=== PATIENT | female | born 1985 | race Caucasian/White ===

== ENCOUNTER 2020-02-14 05:35 | Inpatient (IN) | payer MEDICAID ==
[2020-02-14 06:02] LABS: HEMOGLOBIN A1C 6.5 % (4.5-6.2)
[2020-02-14] MEDS ORDERED: Scopolamine 1.5 MG Transdermal Patch TOP ONE (06:05)
[2020-02-14] MEDS ORDERED: Acetaminophen 500 MG Tab PO ONE (06:05)
[2020-02-14] MEDS ORDERED: Gabapentin 300 MG Cap PO ONE (06:05)
[2020-02-14] MEDS ORDERED: Dextrose 5%-Lactated Ringers 1,000 ML IV SCH ×2 (06:15→13:15)
[2020-02-14] MEDS ORDERED: MAGNESIUM SULFATE IV ONE (07:45)
[2020-02-14] MEDS ORDERED: Ketamine 500 MG/5 ML MDV IV SCH (07:45)
[2020-02-14] MEDS ORDERED: Magnesium Sulfate 3.4 GM in Sodium Chloride 0.9% 100 ML IV SCH (07:45)
[2020-02-14] MEDS ORDERED: Ampicillin/Sulbactam Na 3 GM in Sodium Chloride 0.9% 100 ML IV ONE (07:45)
[2020-02-14] MEDS ORDERED: SODIUM CHLORIDE 0.9% IV ONE (07:45)
[2020-02-14] MEDS ORDERED: Ketamine 50 MG in Sodium Chloride 0.9% 49.5 ML IV SCH (07:45)
[2020-02-14] MEDS ORDERED: Glycopyrrolate 0.2 MG/ML 5 ML MDV ONE (08:06)
[2020-02-14] MEDS ORDERED: Neostigmine Methylsulfate 1 MG/ML 5 ML Syringe ONE (08:06)
[2020-02-14] MEDS ORDERED: Rocuronium 50 MG/5 ML Vial ONE (08:06)
[2020-02-14] MEDS ORDERED: Ondansetron 4 MG/2 ML SDV ONE (08:06)
[2020-02-14] MEDS ORDERED: Propofol 200 MG/20 ML SDV ONE (08:06)
[2020-02-14] MEDS ORDERED: Dexamethasone 4 MG/ML SDV ONE (08:06)
[2020-02-14] MEDS ORDERED: Succinylcholine 200 MG/10 ML MDV ONE (08:06)
[2020-02-14] MEDS ORDERED: fentaNYL 250 MCG/5 ML SDV ONE ×2 (08:06→08:55)
[2020-02-14] MEDS: cefOXitin 2 GM Vial ONE ×2 (09:00→10:30)
[2020-02-14] MEDS ORDERED: Insulin Lispro 100 Unit/ML 3 ML KwikPen SUBCUT ONE (11:02)
[2020-02-14] MEDS ORDERED: Ondansetron 4 MG/2 ML SDV IVPUSH ONE (11:09)
[2020-02-14] MEDS ORDERED: hydrOXYzine HCL 100 MG/2 ML SDV IM ONE (11:36)
[2020-02-14] MEDS ORDERED: fentaNYL 100 MCG/2 ML SDV IVPUSH ONE (11:38)
[2020-02-14] MEDS ORDERED: Metoclopramide 10 MG/2 ML SDV IVPUSH ONE (11:58)
[2020-02-14] MEDS ORDERED: hydrOXYzine HCL 100 MG/2 ML SDV IM PRN (13:08)
[2020-02-14] MEDS ORDERED: Insulin Lispro 100 Unit/ML 3 ML KwikPen SUBCUT PRN (13:08)
[2020-02-14] MEDS ORDERED: Calcium Gluconate 10% 1 GM/10 ML SDV IVPUSH PRN (13:08)
[2020-02-14] MEDS ORDERED: Ondansetron 4 MG/2 ML SDV IVPUSH PRN (13:08)
[2020-02-14] MEDS ORDERED: diphenhydrAMINE 50 MG/ML SDV IVPUSH PRN (13:08)
[2020-02-14] MEDS ORDERED: Glucagon,Human Recombinant 1 MG Vial IM PRN (13:08)
[2020-02-14] MEDS ORDERED: oxyCODONE 5 MG Tab PO PRN (13:08)
[2020-02-14] MEDS ORDERED: Labetalol 20 MG/4 ML Syringe IVPUSH PRN (13:08)
[2020-02-14] MEDS ORDERED: Cyclobenzaprine 10 MG Tab PO PRN (13:08)
[2020-02-14] MEDS ORDERED: HYDROmorphone 1 MG/ML Syringe IV PRN (13:08)
[2020-02-14] MEDS ORDERED: HYDROmorphone 0.5 MG/0.5 ML Syringe IVPUSH PRN (13:08)
[2020-02-14] MEDS ORDERED: Metoclopramide 10 MG/2 ML SDV IVPUSH PRN (13:08)
[2020-02-14] MEDS ORDERED: Acetaminophen 500 MG Tab PO PRN (13:08)
[2020-02-14] MEDS ORDERED: SCOPOLAMINE PATCH CHECK TOP SCH (13:08)
[2020-02-14] MEDS ORDERED: 50% Dextrose in Water 50 ML Syringe IVPUSH PRN (13:08)
[2020-02-14] MEDS ORDERED: Lactated Ringers 1,000 ML IV SCH (13:15)
[2020-02-14] MEDS ORDERED: Acetaminophen 500 MG Tab PO SCH (14:00)
[2020-02-14] MEDS: Pantoprazole 40 MG Vial IVPUSH SCH (14:18)
[2020-02-14] MEDS: cefOXitin 2 GM in Sodium Chloride 0.9% 50 ML IV SCH ×2 (14:21→19:54)
[2020-02-14] MEDS: Gabapentin 250 MG/5 ML Solution ML 470 ML Bottle PO SCH ×2 (14:22→20:00)
[2020-02-14] MEDS: MVI, Adult with Vitamin K 10 ML, Thiamine 200 MG, Chromium/Copper/Mang/Selen/Zn 1 ML in... IV SCH ×4 (16:24)
[2020-02-14] MEDS: Heparin Sodium 5,000 Units/ML Vial SUBCUT SCH (16:24)
[2020-02-14] MEDS: Acetaminophen/Codeine 300-30 MG Tab PO PRN (19:53)
[2020-02-15] MEDS ORDERED: Iopamidol 612 MG/ML 50 ML SDV PO STA (01:53)
[2020-02-15] MEDS: Acetaminophen/Codeine 300-30 MG Tab PO PRN ×5 (02:26→21:50)
[2020-02-15] MEDS: cefOXitin 2 GM in Sodium Chloride 0.9% 50 ML IV SCH ×3 (02:27→13:25)
[2020-02-15] MEDS: Heparin Sodium 5,000 Units/ML Vial SUBCUT SCH ×2 (04:23→17:06)
[2020-02-15] MEDS ORDERED: Ondansetron 4 MG Tab.DIS PO PRN (07:38)
--- NOTE | 2020-02-15 09:07 | CR ---
[facility] HISTORY: Postbariatric surgery FINDINGS: Patient swallowed water-soluble contrast. Upright views of the abdomen show no evidence of extravasation or obstruction. There is a surgical drain in the left upper quadrant. IMPRESSION: Status post bariatric surgery No extravasation or obstruction seen
[2020-02-15] MEDS: Amphetamine/Dextroamphetamine Salts 10 MG Tab PO SCH ×2 (09:50→13:16)
[2020-02-15] MEDS: Gabapentin 250 MG/5 ML Solution ML 470 ML Bottle PO SCH ×3 (10:03→21:50)
--- NOTE | 2020-02-15 10:57 | PN ---
DATE OF SERVICE: 02/15/2020 SUBJECTIVE: Priya is postoperative day #1 following a Donald-en-Y gastric bypass surgery. Upper GI was normal this morning, and she has been tolerating a step 1 gastric bypass diet. Has sponge kidney, so is unable to take Celebrex and has been having her pain controlled with Tylenol No. 3. REVIEW OF SYSTEMS: Remainder of review of systems negative for any pertinent positives or negatives. Last blood sugar was 163. OBJECTIVE: GENERAL: Priya Ansari is a 34-year-old female, alert and orientated. VITAL SIGNS: TPR at 0632, 96.3; 94; 16; blood pressure 125/71. HEENT: Negative. NECK: Supple. HEART: Regular rate and rhythm. LUNGS: Clear. ABDOMEN: Dressings dry and intact. Abdominal binder is on. EVANGELINA drain put out 60 mL of a light pink drainage. EXTREMITIES: Without peripheral edema. ASSESSMENT: Laparoscopic Donald-en-Y gastric bypass surgery, Abhijit-cut needle liver biopsy, excision of mediastinal lipoma, and repair of paraesophageal diaphragmatic hernia. Date of surgery: 02/14/2020. Surgeon: Darrell Anderson MD. PLAN: 1. Saline lock IV. 2. Step 2 gastric bypass diet with no cereal. 3. Dressing off, may shower. 4. Discontinue continuous pulse ox and telemetry. 5. Use of incentive spirometer as directed. 6. Ambulate 6 times daily. 7. We will evaluate p.r.n. or in a.m. Gela Gonzalez PA-C /[id number]
[2020-02-15] MEDS: Pantoprazole 40 MG Vial IVPUSH SCH (13:25)
[2020-02-15] MEDS: MVI, Adult with Vitamin K 10 ML, Thiamine 200 MG, Chromium/Copper/Mang/Selen/Zn 1 ML in... IV SCH ×4 (16:10)
[2020-02-16] MEDS: Acetaminophen/Codeine 300-30 MG Tab PO PRN (03:44)
[2020-02-16] MEDS: Heparin Sodium 5,000 Units/ML Vial SUBCUT SCH (03:46)
[2020-02-16 07:45] VITALS: BP 131/83; PULSE 96
[2020-02-16] MEDS: Gabapentin 250 MG/5 ML Solution ML 470 ML Bottle PO SCH (08:18)
[2020-02-16] MEDS ORDERED: Cyanocobalamin (Vitamin B12) 1,000 MCG/ML SDV IM ONE (09:00)
[2020-02-16] MEDS ORDERED: Pantoprazole 40 MG Delayed-Release Granules 1 Packet PO SCH (16:30)
--- NOTE | 2020-02-18 09:41 | DISCH ---
FINAL DIAGNOSES: 1. Morbid obesity. 2. Type 2 diabetes mellitus. 3. Hepatomegaly. 4. 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 5. Segment of stomach ischemic after pouch formation. 6. History of hypertension. 7. Attention-deficit hyperactivity disorder. 8. History of sponge kidney. 9. Polycystic ovary syndrome. OPERATIVE PROCEDURES: These were done on 02/14/2020; diagnostic laparoscopy with: 1. Laparoscopic Donald-en-Y gastric bypass with long-limb gastroenterostomy. 2. Abhijit-Cut needle liver biopsy. 3. Repair of paraesophageal diaphragmatic hernia with excision of mediastinal lipoma. 4. Partial gastrectomy. HOSPITAL COURSE: This is a 34-year-old female presenting with longstanding morbid obesity and increasingly significant comorbidities. After preoperative evaluation and discussion, she wished to proceed with a gastric bypass procedure. This was done on the date of admission with ongoing concurrent procedures being completed as well. Postoperatively, she has had no significant problems. She will be discharged home on Tylenol No. 3, as needed for pain. Blood sugars have already normalized with last 2 blood sugars in a non-fasting state being in the 120s, off of any diabetic medication, i.e., she will go home off of the Victoza. Of note, her preoperative hemoglobin A1c on the date of admission was 6.5 with the previous one being 5.8, so this is a good time to get her diabetes under control. Given the patient's underlying sponge kidney, she is instructed to maintain her degree of hydration quite vigilantly and call should she have problems with that issue. Otherwise, she will be sent home with Tylenol No. 3, one or two tabs q.4 hours p.r.n. pain; and Adderall 20 mg b.i.d., which she has been taking previously. She will be instructed to hold supplements and her vitamins until after the first appointment. FOLLOWUP: With Gela Gonzalez in [facility] on 02/25/2020.
--- NOTE | 2020-02-26 17:29 | OR ---
DATE OF PROCEDURE: 02/14/2020 SURGEON: Darrell Anderson MD PREOPERATIVE DIAGNOSIS: Morbid obesity. POSTOPERATIVE DIAGNOSES: 1. Morbid obesity. 2. Marked hepatomegaly. 3. Paraesophageal diaphragmatic hernia. 4. Mediastinal lipoma. 5. Segment of stomach ischemic after a pouch formation. OPERATIVE PROCEDURES: Diagnostic laparoscopy with: 1. Laparoscopic Donald-en-Y gastric bypass with long limb gastroenterostomy (66918). 2. Abhijit-Cut needle liver biopsy (50286). 3. Repair of paraesophageal diaphragmatic hernia (08616). 4. Excision of mediastinal lipoma (08745). 5. Partial gastrectomy (06935). ANESTHESIA: General. [employer] ACCESS DEVELOPER: Gela Gonzalez PA-C INDICATIONS FOR PROCEDURE: This is a 34-year-old female presenting with longstanding morbid obesity and increasingly significant comorbidities. After preoperative evaluation and discussion, she wished to proceed with a gastric bypass procedure. Potential risks of procedure including bleeding, infection, leaks from various GI tract closures, problems with bowel obstruction over time, as well as the possibility of cardiopulmonary, septic, or hemorrhagic complications leading to were discussed, and the patient wishes to proceed. DETAILS OF PROCEDURE: The patient was taken to the operating room and, after general endotracheal anesthesia was induced, was placed in a lithotomy position and the abdomen prepped and draped. At 15 cm inferior and 5 cm left of the xiphoid process, a transverse incision was made and carried down through the skin and subcutaneous tissue and the peritoneal cavity entered under direct vision with an Optiview trocar. The peritoneal cavity inflated to 15 mmHg pressure with CO2. Laparoscope was reinserted. No underlying trocar insertion site injuries were seen. Following this, 5 additional trocars were placed across the upper and mid abdomen. Bilateral transversus abdominis plane blocks were placed, and the liver was noted to be markedly enlarged and fatty infiltrated. Abhijit-Cut needle biopsies were then obtained from left lobe of liver. Minimal bleeding from the biopsy site was controlled with electrocautery. The liver was then retracted anteriorly. The patient was noted to have a fairly large thickened omentum. The latter was divided up to the level of the transverse colon. This allowed identification of the small bowel at the ligament of Treitz. Small bowel was then traced out 200 cm distal to that point, where it was divided transversely with a VERONIKA stapler. Small bowel was then traced out additional 150 cm, where the [id number] enteroenterostomy was accomplished with internal firing of the Endo-VERONIKA 60 mm stapler. Common opening was then closed transversely with the same stapler, and the angles anastomosed and mesenteric defect approximated with some 0 Ethibond stitch along with fibrin sealant. The divided end of Donald limb was then from the mesentery for a few centimeters, which allowed antecolic position of the Donald limb up to the level of gastroesophageal junction without tension. The liver was retracted anteriorly. The patient was noted to have a moderate-sized paraesophageal diaphragmatic hernia with prolapse of some perigastric fat, gastric fundus, and a small tongue of omentum in a plane anterior to the course of the esophagus. Hernia was reduced and the peritoneum overlying it divided and reflected downward. During the course of the dissection, mediastinal lipoma was encountered, and to facilitate a more adequate crural repair, this was resected. Crural repair was then accomplished anteriorly with 0 Ethibond sutures reinforced with PTFE pledgets. The gastrointestinal balloon catheter was then inflated to 15 mL and pulled up snugly against the EG junction. Gastric wall over the apex balloon was then marked with electrocautery and balloon catheter pulled up against the esophagogastric junction. Over the apex of the balloon, the gastric wall was marked with electrocautery and balloon catheter deflated and withdrawn. The lesser omental tissue adjacent to the gastric cardia was then incised, allowing dissection behind the stomach at that level. Pouch formation was initiated with transverse firing of the VERONIKA stapler at the level of the cauterized danny in the gastric cardia and completed with some additional VERONIKA firings up to and through the angle of His. Upon completion of the pouch, both staple lines were noted to be intact. The distal aspect of the gastric pouch at this point was noted to be somewhat ischemic in appearance. Given this, this was excised by means of a partial gastrectomy with 2 additional firings of VERONIKA jose. The anvil of a 25 mm EEA stapler was then attached to the [place] sump type tube. The latter was brought down through the mouth and taken out through a small opening in the gastric pouch, allowing the anvil likewise to be pulled down to within the gastric pouch. The divided end of the Donald limb was then opened and main body of the EEA stapler passed several centimeters into the lumen of small bowel, brought up the anvil and united with it, thus creating the gastrojejunostomy. Upon removal of stapler, double donuts of mucosa were noted within it. Small bowel was closed off with a vascular staple line. Gastrojejunostomy was then reinforced with some 3-0 Vicryl seromuscular stitch along with fibrin sealant. Leak test was accomplished with injection of 120 mL of air in the gastric pouch while it was submerged with cefoxitin-containing saline solution. A single Imtiaz-Cao drain was then placed through the left lateral trocar site and positioned adjacent to the gastric cardia and from there up into the splenic fossa. With no further problems noted, trocars were removed. The peritoneal cavity deflated. Incisions were closed with 4-0 Vicryl skin stitch, which was also used to fix the drain. The patient was taken to the recovery room in satisfactory condition. Physician employment assistant, Gela Gonzalez, played an essential role in assisting in this case, helping to position the patient, retract structures as needed, as well as suturing and cutting sutures when indicated. Her presence improved patient safety and decreased operative time. Darrell Anderson MD /[id number]
== END 2020-02-16 09:30 | disposition home or self-care (01) | DRG 620 ==
LOC: JP.SDS 05:35 → JP.SDSSCHI 05:35 → EDSTATUS 07:15 → JP.MS 10:45
PROVIDERS: ADMIT Surgery; ATTEND Surgery
PROC: 0D164ZA Bypass Stomach to Jejunum, Percutaneous Endoscopic Approach (ICD-10-PCS; principal; 2020-02-14)
PROC: 0FB24ZX Excision of Left Lobe Liver, Percutaneous Endoscopic Approach, Diagnostic (ICD-10-PCS; 2020-02-14)
PROC: 0BQT4ZZ Repair Diaphragm, Percutaneous Endoscopic Approach (ICD-10-PCS; 2020-02-14)
PROC: 0JB63ZZ Excision of Chest Subcutaneous Tissue and Fascia, Percutaneous Approach (ICD-10-PCS; 2020-02-14)
PROC: 0DB64ZZ Excision of Stomach, Percutaneous Endoscopic Approach (ICD-10-PCS; 2020-02-14)
DX: E66.01 Morbid (severe) obesity due to excess calories (principal); Q61.5 Medullary cystic kidney; E11.9 Type 2 diabetes mellitus without complications; R16.0 Hepatomegaly, not elsewhere classified; K44.9 Diaphragmatic hernia without obstruction or gangrene; D17.1 Benign lipomatous neoplasm of skin and subcutaneous tissue of trunk; F90.9 Attention-deficit hyperactivity disorder, unspecified type; I10 Essential (primary) hypertension; E28.2 Polycystic ovarian syndrome; F41.9 Anxiety disorder, unspecified; F32.9 Major depressive disorder, single episode, unspecified; K59.00 Constipation, unspecified; G47.30 Sleep apnea, unspecified; Z79.4 Long term (current) use of insulin; Z68.41 Body mass index [BMI] 40.0-44.9, adult; Z79.899 Other long term (current) drug therapy; Z88.5 Allergy status to narcotic agent; Z88.6 Allergy status to analgesic agent
CPT/HCPCS: 36415; 74240; 74240-26; 80053; 81025; 82962; 83036; 83735; 84100; 85027; 86850; 86900; 86901; 88304; 88307; 88313; 93005; A9270-GY; C9113; J0171; J0295; J0330; J0694; J1100; J1644; J1815; J2405; J2704; J2710; J2765; J2795; J3010; J3410; J3411; J3420; J3475; J3490; J7050; J7121; Q9967